=== PATIENT | female | born 1985 | race Caucasian/White ===

== ENCOUNTER 2021-10-18 07:01 | Emergency (ER) | payer OTHER ==
[2021-10-18 07:10] VITALS: BP 137/68
--- NOTE | 2021-10-18 07:12 | ED Physician Documentation ---
PD HPI ABD PAIN - Stated complaint Stated Complaint: LOW ABD PX - Chief complaint Chief Complaint: Abd Pain - History obtained from History obtained from: Patient - History of Present Illness Timing - onset: How many days ago (2) Timing - duration: Days (2 days of consistent pain in rectal area when seated and with attempted BM. No pain with urination. Has feeling of rectal urgency. Has had some soft formed stools.) Timing - details: Gradual onset, Waxing and waning Quality: Cramping (lower abd/suprapubic area intermittent cramping. Mainly having rectal area pain.), Aching Location: Suprapubic, Other (rectal pain with BMs) Improved by: No: Eating, BM (painful with BMs.) Worsened by: No: Eating Associated symptoms: No: Fever, Nausea, Vomiting, Diarrhea, Dysuria, Vaginal bleeding, Vaginal dc Similar symptoms before: No diagnosis (similar few months ago without Dx. Seen at [facility] without rectal exam nor tests. No Rx but told to do sitting baths and hemorrhoid cream external. Pt says it improved after a week or so.) Review of Systems Constitutional: denies: Fever, Chills Nose: denies: Rhinorrhea / runny nose, Congestion Throat: denies: Sore throat Respiratory: denies: Cough GI: reports: Abdominal Pain, Bloody / black stool (bright red blood with BMs when wiping.). denies: Nausea, Vomiting, Constipation, Diarrhea Skin: denies: Rash, Lesions PD PAST MEDICAL HISTORY - Past Medical History Cardiovascular: None Respiratory: None Endocrine/Autoimmune: None GI: None - Present Medications Home Medications: Ambulatory Orders Medication Instructions Recorded Confirmed Docusate Sodium 100Mg Capsule 100 mg PO DAILY #20 cap 10/18/21 [Colace 100Mg Capsule] Hydrocortisone Acetate 25 mg RC DAILY 6 Days #6 supp.rect 10/18/21 - Allergies Allergies/Adverse Reactions: Allergies Allergy/AdvReac Type Severity Reaction Status Date / Time No Known Drug Allergies Allergy Verified 10/18/21 07:05 PD ED PE NORMAL - Vitals Vital signs reviewed: Yes - General General: Alert and oriented X 3, No acute distress, Well developed/nourished - Abdomen Abdomen: Normal bowel sounds, Soft, Non tender - Female Female : Deferred - Rectal Rectal: Other (nursing present in room: disposable anoscope used for exam. Showing internal hemorrhoid inflammed, without thrombosis. No bleeding right now. It is tender. DIgital exam shows not firm/not thrombosed. NO stool in vault.) - Back Back: No CVA TTP - Derm Derm: Normal color, Warm and dry Results - Vitals Vitals: Vital Signs - 24 hr 10/18/21 07:05 Temperature 36.1 C L Heart Rate 100 Respiratory 18 Rate Blood Pressure 137/68 H O2 Saturation 100 Oxygen O2 Source Room air - Labs Labs: Laboratory Tests 10/18/21 07:12 Urine Color YELLOW Urine Clarity CLEAR Urine pH 6.5 Ur Specific [place] 1.020 Urine Protein NEGATIVE Urine Glucose (UA) NEGATIVE Urine Ketones NEGATIVE Urine Occult Blood NEGATIVE Urine Nitrite NEGATIVE Urine Bilirubin NEGATIVE Urine Urobilinogen 0.2 (NORMAL) Ur Leukocyte Esterase NEGATIVE Ur Microscopic Review NOT INDICATED Urine Culture Comments NOT INDICATED Urine HCG, Qual NEGATIVE PD MEDICAL DECISION MAKING - ED course Complexity details: considered differential (seems c/w hemorrhoid internal. Can treat it as such and see if improved. F/U with surgery to consider scope if not improved. ), d/w patient Departure - Departure Disposition: 01 Home, Self Care Clinical Impression: Rectal pain, Hemorrhoids, internal Condition: Stable Record reviewed to determine appropriate education?: Yes Instructions: ED Hemorrhoids Follow-Up: MAGALIS URENA MD [Primary Care Provider] - Ludwin Hameed MD [Provider Admit Priv/Credential] - Prescriptions: Docusate Sodium 100Mg Capsule [Colace 100Mg Capsule] 100 mg PO DAILY #20 cap Hydrocortisone Acetate 25 mg RC DAILY 6 Days #6 supp.rect Comments: There does not appear or feel to be a mass or abscess in the perirectal area. There is internal hemorrhoid that seems dilated. It does not seem to be thrombosed, which means clotted within the hemorrhoid. When that happens, sometimes it needs to be lanced open to get the clot out. At this point it appears to be inflammatory. 1 would presume that the cause of the pain and bleeding as those are common symptoms. We can treat this with a hydrocortisone suppository in order to get at the area that is involved and inflamed. Use the suppository daily for the next 5 to 6 days. See if symptoms have improved over the first few days. If you are having somewhat formed to firm stools, then also add a stool softener such as docusate daily. Tylenol or ibuprofen as needed for pains. If this persists despite this treatment or you have recurring symptoms in the near future, you could follow-up with general surgery for discussion of other hemorrhoid treatments and whether a sigmoidoscope or colonoscopy would be indicated for more evaluation. Return to the ER if worsening symptoms. Discharge Date/Time: 10/18/21 08:00
[2021-10-18 07:48] LABS: LEUKOCYTE ESTERASE, URINE NEGATIVE (NEGATIVE); NITRITE,URINE NEGATIVE (NEGATIVE); PH,URINE 6.5 PH (5.0-7.5); PROTEIN,URINE NEGATIVE (NEGATIVE); UROBILINOGEN,URINE 0.2 (NORMAL) E.U./dL (NORMAL)
[2021-10-18 07:49] LABS: BILIRUBIN,URINE NEGATIVE (NEGATIVE); CLARITY,URINE CLEAR (CLEAR); GLUCOSE, URINE (UA) NEGATIVE (NEGATIVE); HCG UR QUAL NEGATIVE; KETONES,URINE (UA) NEGATIVE (NEGATIVE); OCCULT BLOOD,URINE NEGATIVE (NEGATIVE)
== END 2021-10-18 08:00 | disposition home or self-care (01) ==
LOC: ED 07:01
DX: K64.8 Other hemorrhoids (principal)
CPT/HCPCS: 80053; 81001; 81003; 81025; 83690; 85025; 87086; 99283